=== PATIENT | male | born 1955 | race Caucasian/White ===

== ENCOUNTER 2016-06-29 20:37 | Inpatient (IN) | payer OTHER ==
[~2016-06-29] VITALS: Ht 188 cm; Wt 108.9 kg
[~2016-06-29 20:37] MED LIST: ALDACTONE25 MG PO; AMOXICILLIN500 M2 PO; ASPIRIN EC81 M1 PO; CARDIZEM CD120 M2 PO; COLCHICINE0.6 M2 PO; CORDARONE200 MG PO; DIGOXIN125 MCG PO; DILTIAZEM 24HR300 MG PO; DILTIAZEM ER360 M1 PO; FLOMAX0.4 M1 PO; IBUPROFEN400 M1 PO; LASIX20 M1 PO; LASIX40 M1 PO; MAGNESIUM OXID400 M1 PO; METOPROLOL SUC100 M2 PO; METOPROLOL SUCC50 M2 PO; OMEPRAZOLE20 M2 PO; PERCOCET 5-3251 EACH PO; PRADAXA150 M1 PO; SPIRONOLACTONE25 M1 PO; TOPROL XL100 M1 PO
[2016-06-29 21:05] LABS: ABSOLUTE BASOPHIL COUNT 0 /CUMM (0.0-0.2); ABSOLUTE EOSINOPHIL COUNT 0.4 /CUMM (0.0-0.7); ABSOLUTE LYMPH COUNT 1.7 /CUMM (1.2-3.4); ABSOLUTE MONOCYTE COUNT 1.1 /CUMM (0.10-0.60); BASOPHIL % 0.4 % (0.0-2.0); EOSINOPHIL % 2.8 % (0-5); GRANULOCYTE % 75.5 % (42.2-75.2); HEMATOCRIT 47.9 % (42-52); MEAN CORPUSCULAR HGB CONC 33.1 G/DL (33.0-37.0); MEAN CORPUSCULAR VOLUME 87.7 FL (80.0-94.0); MEAN PLATELET VOLUME 8.3 FL (7.4-10.4); PLATELET COUNT 299 /CUMM (130-400); RBC DISTRIBUTION WIDTH 14.1 % (11.5-14.5); RED BLOOD CELL CT 5.47 /CUMM (4.70-6.10); WHITE BLOOD CELL COUNT 13.2 /CUMM (4.8-10.8)
--- NOTE | 2016-06-29 21:11 | ED GI/GU/ABDOMINAL COMPLAINT ---
History of Present Illness General Chief Complaint: Abdominal Pain/Flank Pain Stated Complaint: ABD PAIN, +NVD Source: patient Exam Limitations: no limitations Allergies Coded Allergies: NO KNOWN ALLERGIES (10/21/15) Reconcile Medications Apixaban (Eliquis) 5 MG TABLET 1 TAB PO BID DIRECTED (Reported) Colchicine 0.6 MG TABLET 1 TAB PO DAILY DIRECTED (Reported) Digoxin 125 MCG TABLET 1 TAB PO DAILY DIRECTED (Reported) Diltiazem HCl (Diltiazem 24HR ER) 360 MG CAP.ER.24H 1 CAP PO DAILY DIRECTED (Reported) Metoprolol Succinate 100 MG TAB.ER.24H 150 MG PO DAILY DIRECTED (Reported) Triage Note: STATES WOKE UP SUNDAY MORNING WITH CRAMPS AND DIARRHEA, GOT WORSE ON SUNDAY, CALLED PCP, BUT UNABLE TO GET SEEN. STARTED TO FEEL BETTER YESTERDAY, AND SAME WITH TODAY AND TRIED TO EAT SOMETHING, AND NOW HAS STOMACH PAINS ALL OVER. PTS ABDOMEN FEELS FIRM/DISTEDED. STATES STILL HAVING DIARRHEA, HAD EPISODE OF VOMITING BEFORE COMING HERE. Triage Nurses Notes Reviewed? yes Onset: Gradual Duration: day(s): (4) Timing: remote history Quality/Severity: cramping Severity Numbers: 8 Location: generalized abdomen Radiation: no radiation Activities at Onset: none Prior Abdominal Problems: none Past Sexual History: Unobtainable at this time No Modifying Factors: none HPI: Patient is a 61-year-old male with history of diverticulitis presenting to the emergency department of diffuse abdominal pain, diarrhea, nausea and vomiting this been waxing and waning since Sunday. He reports that it started after eating cheeseburgers from a take-out facility. He then started with loose watery stool, denies blood in the stool. After the diarrhea tapered down he developed some nausea and vomiting over the past 2 days. He reports that in the meantime his abdomen has become large, distended and very painful. Today he was trying to eat something to see if the abdominal pain had improved. He reports that after he had chicken and potato abdominal pain worsened symptoms definitely which made him come into the emergency department for evaluation. Positive nausea but no vomiting yet today. (INA QUINONES,ALISHA) Vital Signs & Intake/Output Vital Signs & Intake/Output Vital Signs Date Time Temp Pulse Resp B/P Pulse O2 O2 Flow FiO2 Ox Delivery Rate 06/30 1641 126 94/70 06/30 1606 97.4 59 16 100/80 97 Room Air 06/30 1121 122 98/60 03/ 0854 98.6 130 20 120/80 03/10 0832 98.6 83 20 120/80 97 Room Air 03 0832 98.6 83 20 120/80 97 Room Air 06/30 0145 98.5 100 18 124/80 96 Room Air 06/30 0029 122.0 122/78 06/30 0012 120 20 122/78 98 Room Air 06/29 2308 96.8 105 16 97/67 97 Room Air 06/29 2212 Room Air ED Intake and Output 06/30 0000 06/29 1200 Intake Total 1000 Output Total Balance 1000 Intake, IV 1000 Past History Travel History Traveled to [place] past 21 day No Medical History Any Pertinent Medical History? see below for history Neurological: NONE EENT: NONE Cardiovascular: AFIB, aflutter, SVT PERICARDIAL EFFUSION S/P PERICARDIAL WINDOW Respiratory: NONE Gastrointestinal: diverticulitis Hepatic: NONE Renal: NONE Musculoskeletal: NONE, LEFT SHOULDER SX Psychiatric: NONE Endocrine: NONE Blood Disorders: NONE Cancer(s): NONE PUBLIC HEALTH NURSE/Reproductive: ENLARGED PROSTATE History of MRSA: No History of VRE: No History of CDIFF: No Surgical History Surgical History: appendectomy, L SHOULDER SURGERY, L KNEE SURGERY Psychosocial History Who do you live with Family Services at Home None What is your primary language Kosovan Tobacco Use: Never used Family History Family History, If Any: MOTHER FH: lung cancer FATHER FH: emphysema Hx Contributory? No (ALISHA DONALD) Review of Systems Review of Systems Constitutional: Reports: malaise. Comments Review of systems: See HPI, All other systems negative. Constitutional, no chills fever or weight loss HEENT: No visual changes no sore throat no congestion Cardiovascular: No chest pain ,palpitation , orthopnea or ankle swelling Skin, no jaundice no rashes Respiratory: No dyspnea cough sputum or hemoptysis GI: POS N/V/D : No dysuria No hematuria Muscle skeletal: no back pain, no neck pain, Neurologic: No numbness no confusion NO VIDAL Psych: No stress anxiety or depression,. Heme/endocrine: No bruising no bleeding no polyuria or polydipsia Immunology: No splenectomy or history of AIDS (ALISHA DONALD) Physical Exam Physical Exam General Appearance: well developed/nourished, no apparent distress, alert, awake , comfortable Gastrointestinal: tenderness Comments: Well-developed well-nourished person in no acute distress HEENT: Pupils equally round and reactive to light and accommodation. Nose is atraumatic. External auditory canal and Tympanic membranes clear. Pharynx normal. No swelling or edema. Neck: Supple, no lymphadenopathy, normal range of motion without pain or tenderness Back: Nontender, no CVA tenderness. Cardiovascular: irRegular rate and rhythms no murmurs rubs or gallops, normal JVP Respiratory: Chest nontender. No respiratory distress.breath sounds clear to auscultation bilaterally Abdomen: DISTENSION, TYMPANIC SOUNDS TO PERCUSSION THROUGHOUT, no appreciable organomegaly. Hypoactive bowel sounds. No ascites Extremity: No edemA Neuro: Alert oriented x3 Skin: No appreciable rash on exposed skin, skin is warm and dry. Psych: Mood and affect is normal, memory and judgment is normal. Core Measures ACS in differential dx? Yes Severe Sepsis Present: No Septic Shock Present: No (INA QUINONES,ALISHA) Progress Differential Diagnosis: ischemic bowel, SBO, perforated viscus Diagnostic Imaging: Viewed by Me: CT Scan. Discussed w/RAD: CT Scan. Radiology Impression: PATIENT: ÁNGEL BILLY PRESENT AGE: 61 PATIENT ACCOUNT NO: [id number] : 59 LOCATION: [facility] ORDERING PHYSICIAN: ALISHA QUINONES SERVICE DATE: 06/29/16 EXAM TYPE: CAT - CT ABD & PELVIS W IV CONTRAST EXAMINATION: CT ABDOMEN AND PELVIS WITH CONTRAST CLINICAL INFORMATION: Abdominal distention. Diarrhea. COMPARISON: CT scan abdomen pelvis 06/26/2012 TECHNIQUE: Multidetector volumetric imaging was performed of the abdomen and pelvis after the IV administration of 95 mL of Optiray 320 intravenous contrast. Sagittal and coronal reformatted images were obtained on the technologist's workstation. DLP: 766.6 mGy-cm FINDINGS: LUNG BASES: The visualized lung bases are unremarkable. LIVER, GALLBLADDER, AND BILIARY TREE: The liver is normal in size, shape, and attenuation. No focal hepatic lesion or biliary ductal dilatation is present. The gallbladder is unremarkable with no evidence of radiopaque gallstones, gallbladder wall thickening, or obvious pericholecystic inflammatory changes. PANCREAS: Pancreas is atrophic. SPLEEN: Unremarkable. ADRENAL GLANDS: Unremarkable. KIDNEYS AND URETERS: The kidneys are normal in size, shape, and attenuation. No hydronephrosis, hydroureter, or calculi seen. No perinephric stranding. BLADDER: Unremarkable. GASTROINTESTINAL TRACT: There is diverticulosis of sigmoid left colon. No diverticulitis. No acute bowel wall thickening or edema. Moderate volume of stool in colon. The large bowel is decompressed. There is dilatation of the proximal to mid distal small bowel. The terminal ileum and distal small bowel loops are decompressed. Transition is in the right lower quadrant. Bowel pattern is that of a small bowel obstruction. MESENTERY: Small volume free fluid in the lower pelvis. No inflammation. No free air. ABDOMINAL WALL: No significant hernia is appreciated. LYMPH NODES: Normal. VASCULAR: Unremarkable. PELVIC VISCERA: Unremarkable. OSSEOUS STRUCTURES: Multilevel endplate degenerative spurs. Facet joint arthrosis at lower lumbar spine. IMPRESSION: 1. Small bowel obstruction. 2. Diverticulosis of left colon without diverticulitis. 3. Small amount of free fluid in the cul-de-sac. No inflammation of mesentery or free air. Initial ED EKG: AFIB Comments: IV fluids and morphine and initiated on arrival. Patient is afebrile at this time. Patient has diffuse abdominal distention tenderness. Considering SbO. Patient will for CT scan. Patient feeling much better after IV morphine. His department for CT results revealing small bowel obstruction. Spoke With , covering surgeon, the surgical physician pizza hut assistant will be down to evaluate the patient. Patient informed of all imaging results and lab results. Patient will be admitted to surgery for SBO. Holding off on NG tube at this time per surgical physician [employer] assistant. Patient EKG does show rapid A. fib around 120. Patient has not been eating or drinking all day. Patient did take his by mouth medications or any. Blood pressure manually is 128/78. Patient given IV Cardizem. Paged on-call cardiology, awaiting callback. (ALISHA DONALD) Plan of Care: Orders Procedure Date/time Status CBC WITHOUT DIFFERENTIAL 07/01 599 Active BASIC ELECTROLYTES PLUS BUN&CR 07/01 599 Active Clear Liquid Diet 06/30 D Active Nothing by Mouth 06/30 B Complete CULTURE,STOOL 06/30 1013 Active CBC WITHOUT DIFFERENTIAL 06/30 599 Complete BASIC ELECTROLYTES PLUS BUN&CR 06/30 0600 Complete Vital Signs 06/30 154 Active Teach/Educate 06/30 154 Active Pain Treatment and Response 06/30 154 Active Nutritional Intake, Monitor 06/30 154 Active Isolation 06/30 154 Active Intake & Output 06/30 154 Complete Patient Care Conference 06/30 154 Active Activity/Ambulation 06/30 154 Active Add-on Test (ER Only) 06/30 124 Active Pathway - chart 06/30 0024 Active Patient Data 06/30 002 Active Code Status 06/30 002 Active URINALYSIS 06/30 0014 Complete Admit to inpatient 06/30 0008 Active VTE Mechanical Prophylaxis 06/30 UNK Active Vital Signs 06/30 UNK Active Telemetry/Beer Cooler 06/30 UNK Active Intake & Output 06/30 UNK Active EKG 06/29 2338 Active Add-on Test (ER Only) 06/29 2324 Active TROPONIN LEVEL 06/29 2053 Complete DIGOXIN 06/29 2053 Complete Current Medications Sig/Jeanne Start time Last Medication Dose Stop Time Status Admin Colchicine 600 MCG DAILY 07/01 1000 CAN (Colchicine 600MCG Tab) Diltiazem HCl 360 MG DAILY 07/01 1000 AC (Cardizem CD) Ondansetron HCl 4 MG Q6P PRN 06/30 0030 AC (Zofran) Laboratory Tests 06/30/16 0615: Anion Gap 9, Estimated GFR > 60, BUN/Creatinine Ratio 21.1, CBC w Diff NO MAN DIFF REQ, RBC 4.86, MCV 87.4, MCH 29.8, RDW 13.9, MPV 9.0, Gran % 76.1 H, Lymphocytes % 12.3 L, Monocytes % 9.9 H, Eosinophils % 1.3, Basophils % 0.4, Absolute Granulocytes 7.5 H, Absolute Lymphocytes 1.2, Absolute Monocytes 1.0 H, Absolute Eosinophils 0.1, Absolute Basophils 0, PUBS MCHC 34.1 06/30/16124: Troponin I Cancelled 06/30/169: Urine Color STRAW, Urine Clarity CLEAR, Urine pH 6.5, Ur Specific [place] 1.010, Urine Protein TRACE H, Urine Ketones NEG, Urine Nitrite NEG, Urine Bilirubin NEG, Urine Urobilinogen 1.0, Ur Leukocyte Esterase NEG, Ur Microscopic SEDIMENT EXAMINED, Urine RBC 1-3, Urine WBC RARE, Urine Mucus FEW, Urine Hemoglobin NEG, Urine Glucose NEG 06/29/16 2351: Lactic Acid Cancelled Microbiology 06/30 1013 STOOL: Stool Culture - COLB Departure Departure Time of Disposition: 2357 Disposition: STILL A PATIENT Condition: Stable Clinical Impression Primary Impression: Small bowel obstruction Referrals: AYESHA BENAVIDES DO (PCP/Family) Departure Forms: Customer Survey General Discharge Information Admission Note Spoke With: ALEJANDRA LANDA,TIERRA Duff Documentation of Exam: Documentation of any treatments & extenuating circumstances including Concerns Regarding Discharge (functional status, medication knowledge or non-compliance, living conditions, etc.) that warrant an admission rather than observation: (INA QUINONES,ALISHA) PA/RECYCLE WORKER Co-Sign Statement Statement: ED Attending supervision documentation- x I saw and evaluated the patient. I have also reviewed all the pertinent lab results and diagnostic results. I agree with the findings and the plan of care as documented in the PA's/RECYCLE WORKER's documentation. [] I have reviewed the ED Record and agree with the PA's/RECYCLE WORKER's documentation. [] Additions or exceptions (if any) to the PAs/RECYCLE WORKER's note and plan are summarized below: [] (MARGE LANDA,MARGARITO)
[2016-06-29 21:15] LABS: PT 17.2 SEC (9.4-12.5); PTT 32 SEC (25-37)
--- NOTE | 2016-06-29 22:18 | NUR ---
MEDICATED PER EMAR. PT RESTING COMFORTABLY. BURPING OCCASIONALLY
--- NOTE | 2016-06-29 22:18 | NUR ---
JOSE Story TRIAGE NOTE: STATES WOKE UP SUNDAY MORNING WITH CRAMPS AND DIARRHEA, GOT WORSE ON SUNDAY, CALLED PCP, BUT UNABLE TO GET SEEN. STARTED TO FEEL BETTER YESTERDAY, AND SAME WITH TODAY AND TRIED TO EAT SOMETHING, AND NOW HAS STOMACH PAINS ALL OVER. PTS ABDOMEN FEELS FIRM/DISTEDED. STATES STILL HAVING DIARRHEA, HAD EPISODE OF VOMITING BEFORE COMING HERE.
--- NOTE | 2016-06-29 22:59 | NUR ---
PT TO AND FROM CT, AWAITING RESULTS
--- NOTE | 2016-06-29 23:05 | CT SCAN REPORT ---
EXAMINATION: CT ABDOMEN AND PELVIS WITH CONTRAST CLINICAL INFORMATION: Abdominal distention. Diarrhea. COMPARISON: CT scan abdomen pelvis 06/26/2012 TECHNIQUE: Multidetector volumetric imaging was performed of the abdomen and pelvis after the IV administration of 95 mL of Optiray 320 intravenous contrast. Sagittal and coronal reformatted images were obtained on the technologist's workstation. DLP: 766.6 mGy-cm FINDINGS: LUNG BASES: The visualized lung bases are unremarkable. LIVER, GALLBLADDER, AND BILIARY TREE: The liver is normal in size, shape, and attenuation. No focal hepatic lesion or biliary ductal dilatation is present. The gallbladder is unremarkable with no evidence of radiopaque gallstones, gallbladder wall thickening, or obvious pericholecystic inflammatory changes. PANCREAS: Pancreas is atrophic. SPLEEN: Unremarkable. ADRENAL GLANDS: Unremarkable. KIDNEYS AND URETERS: The kidneys are normal in size, shape, and attenuation. No hydronephrosis, hydroureter, or calculi seen. No perinephric stranding. BLADDER: Unremarkable. GASTROINTESTINAL TRACT: There is diverticulosis of sigmoid left colon. No diverticulitis. No acute bowel wall thickening or edema. Moderate volume of stool in colon. The large bowel is decompressed. There is dilatation of the proximal to mid distal small bowel. The terminal ileum and distal small bowel loops are decompressed. Transition is in the right lower quadrant. Bowel pattern is that of a small bowel obstruction. MESENTERY: Small volume free fluid in the lower pelvis. No inflammation. No free air. ABDOMINAL WALL: No significant hernia is appreciated. LYMPH NODES: Normal. VASCULAR: Unremarkable. PELVIC VISCERA: Unremarkable. OSSEOUS STRUCTURES: Multilevel endplate degenerative spurs. Facet joint arthrosis at lower lumbar spine. IMPRESSION: 1. Small bowel obstruction. 2. Diverticulosis of left colon without diverticulitis. 3. Small amount of free fluid in the cul-de-sac. No inflammation of mesentery or free air.
[2016-06-29] MEDS ORDERED: DIGOXIN125 MCG PO (23:23)
[2016-06-29] MEDS ORDERED: METOPROLOL SUC100 M2 PO (23:23)
[2016-06-29] MEDS ORDERED: ELIQUIS5 M1 PO (23:24)
[2016-06-29] MEDS ORDERED: COLCHICINE0.6 M2 PO (23:24)
[2016-06-29] MEDS ORDERED: DILTIAZEM 24HR360 MG PO (23:24)
--- NOTE | 2016-06-30 00:03 | Admission Core Measures ---
Admission Lab Results I reviewed the following labs: Laboratory Tests 06/29 06/29 2351 2054 Chemistry Sodium (137 - 145 mmol/L) 136 L Potassium (3.5 - 5.1 mmol/L) 4.4 Chloride (98 - 107 mmol/L) 97 L Carbon Dioxide (22 - 30 mmol/L) 24 Anion Gap (5 - 16) 14 BUN (9 - 20 mg/dL) 22 H Creatinine (0.7 - 1.2 mg/dL) 1.0 Estimated GFR (>60 ml/min) > 60 BUN/Creatinine Ratio (7 - 25 %) 22.0 Glucose (65 - 99 mg/dL) 116 H Lactic Acid (0.7 - 2.1 mmol/L) Cancelled 1.1 Calcium (8.4 - 10.2 mg/dL) 9.9 Total Bilirubin (0.2 - 1.3 mg/dL) 1.2 AST (17 - 59 U/L) 35 ALT (21 - 72 U/L) 40 Alkaline Phosphatase (< 127 U/L) 98 Total Protein (6.3 - 8.2 g/dL) 8.0 Albumin (3.5 - 5.0 g/dL) 4.6 Globulin (1.9 - 4.2 gm/dL) 3.4 Albumin/Globulin Ratio (1.1 - 2.2 %) 1.4 Amylase (30 - 110 U/L) 45 Lipase (23 - 300 U/L) 58 Coagulation PT (9.4 - 12.5 SEC) 17.2 H INR (0.90 - 1.17) 1.65 H APTT (25 - 37 SEC) 32 Hematology CBC w Diff NO MAN DIFF REQ WBC (4.8 - 10.8 /CUMM) 13.2 H RBC (4.70 - 6.10 /CUMM) 5.47 Hgb (14.0 - 18.0 G/DL) 15.8 Hct (42 - 52 %) 47.9 MCV (80.0 - 94.0 FL) 87.7 MCH (27.0 - 31.0 PG) 29.0 RDW (11.5 - 14.5 %) 14.1 Plt Count (130 - 400 /CUMM) 299 MPV (7.4 - 10.4 FL) 8.3 Gran % (42.2 - 75.2 %) 75.5 H Lymphocytes % (20.5 - 51.1 %) 13.0 L Monocytes % (1.7 - 9.3 %) 8.3 Eosinophils % (0 - 5 %) 2.8 Basophils % (0.0 - 2.0 %) 0.4 Absolute Granulocytes (1.4 - 6.5 /CUMM) 10.0 H Absolute Lymphocytes (1.2 - 3.4 /CUMM) 1.7 Absolute Monocytes (0.10 - 0.60 /CUMM) 1.1 H Absolute Eosinophils (0.0 - 0.7 /CUMM) 0.4 Absolute Basophils (0.0 - 0.2 /CUMM) 0 PUBS MCHC (33.0 - 37.0 G/DL) 33.1 Acute Coronary Syndrome Inclusion Criteria ACS Diagnosis No Inpatient Core Measures LDL Reminder: If No, please order W/I first 24hr of stay Congestive Heart Failure Inclusion Criteria CHF Diagnosis No Cerebrovascular accident Inclusion Criteria CVA/TIA Diagnosis No Inpatient Core Measures Bedside Swallow Eval Reminder: If BSE failed, place ST order Antithrombotic Reminder: Order Antithrombotic Medication by end of day 2 Antithrombotic Reminder: Document Reason Antithrombotic Not ordered by end of day 2 AFIB/Flutter Reminder: If Present, add to problem list AFIB/Flutter Reminder: Order Anticoag Medication for pts with AFIB/Flutter Atherosclerosis Reminder: If Present, add to problem list LDL Reminder: If No, please order W/I first 24hr of stay PT Order Reminder: If No, please order Venous thromboembolism Inpatient Core Measures VTE Risk Factors: Age > 40 No [facility] VTE prophylaxis d/t No contraindications No VTE Pharm Prophylaxis d/t No contraindications Inclusion Criteria - Per Current guidelines, there needs to be overlap - treatment for the first 5 days of Warfarin therapy. - Parenteral Anticoagulation (IV or SC) needs to be - given along with Warfarin therapy. VTE Diagnosis No VTE Type NONE VTE Confirmed by (Test) NONE Problem List As ranked by this Provider includes Assessment & Plan 1. Small bowel obstruction HOME MEDS Home Med List Apixaban (Eliquis) 5 MG TABLET 1 TAB PO BID DIRECTED (Reported) Colchicine 0.6 MG TABLET 1 TAB PO DAILY DIRECTED (Reported) Digoxin 125 MCG TABLET 1 TAB PO DAILY DIRECTED (Reported) Diltiazem HCl (Diltiazem 24HR ER) 360 MG CAP.ER.24H 1 CAP PO DAILY DIRECTED (Reported) Metoprolol Succinate 100 MG TAB.ER.24H 150 MG PO DAILY DIRECTED (Reported)
--- NOTE | 2016-06-30 00:04 | NUR ---
SURG PA HERE TO EVAL EKG DONE.
--- NOTE | 2016-06-30 00:17 | NUR ---
URINE SPEC OBTAINED--3 SPEC TO LAB
--- NOTE | 2016-06-30 00:18 | History & Physical Pre-Op ---
General Information and HPI MD Statement: I have seen and personally examined ÁNGEL BILLY and documented this H&P. The patient is a 61 year old M who presented with a patient stated chief complaint of abdominal pain. Source of Information: patient History of Present Illness: This is a 61-year-old male minutes with a few day history of loose bowel movements, nausea/vomiting, and increased abdominal distention. The patient was seen and reports that some time on Sunday after eating a cheeseburger he developed some abdominal distention with associated loose bowel movements. Throughout the next few days the patient continued to be distended with associated loose bowel movements and intermittent nausea/vomiting. The patient tried to eat some solid food today and due to significantly increased distention and pain he came to the emergency department. He had no other complaints the current time and denied any previous episodes, fever/chills, or dysuria. The patient has had a bout of diverticulitis in the past but this felt different. His last bowel movement was earlier today and he continues to pass some flatus but remains mildly nauseous. Allergies/Medications Allergies: Coded Allergies: NO KNOWN ALLERGIES (10/21/15) Home Med list Apixaban (Eliquis) 5 MG TABLET 1 TAB PO BID DIRECTED (Reported) Colchicine 0.6 MG TABLET 1 TAB PO DAILY DIRECTED (Reported) Digoxin 125 MCG TABLET 1 TAB PO DAILY DIRECTED (Reported) Diltiazem HCl (Diltiazem 24HR ER) 360 MG CAP.ER.24H 1 CAP PO DAILY DIRECTED (Reported) Metoprolol Succinate 100 MG TAB.ER.24H 150 MG PO DAILY DIRECTED (Reported) Compliance With Home Meds: GOOD Past History Medical History Neurological: NONE EENT: NONE Cardiovascular: AFIB, aflutter, SVT PERICARDIAL EFFUSION S/P PERICARDIAL WINDOW Respiratory: NONE Gastrointestinal: diverticulitis Hepatic: NONE Renal: NONE Musculoskeletal: NONE, LEFT SHOULDER SX Psychiatric: NONE Endocrine: NONE Blood Disorders: NONE Cancer(s): NONE 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 Ambulation: independent IADLs Independent: shopping, housework, finances, food prep, telephone, transportation , medication admin. Employment History Employment: Employed Profession/Employer: [employer] Review of Systems Review of Systems Cardiovascular: Denies: chest pain, palpitations. Respiratory: Denies: cough, short of breath. GI: Denies: melena, changes in stool. Genitourinary: Denies: dysuria. Exam & Diagnostic Data Last 24 Hrs of Vital Signs/I&O Vital Signs Date Time Temp Pulse Resp B/P Pulse O2 O2 Flow FiO2 Ox Delivery Rate 06/30 2307 96.8 105 16 97/67 97 Room Air 06/29 221 Room Air 06/29 204 97.0 83 16 102/74 100 Room Air Intake & Output 06/30 0800 06/30 0000 06/29 1600 Intake Total 1000 Output Total Balance 1000 Intake, IV 1000 Laboratory Tests 06/291 2053 Chemistry Sodium (137 - 145 mmol/L) 136 L Potassium (3.5 - 5.1 mmol/L) 4.4 Chloride (98 - 107 mmol/L) 97 L Carbon Dioxide (22 - 30 mmol/L) 24 Anion Gap (5 - 16) 14 BUN (9 - 20 mg/dL) 22 H Creatinine (0.7 - 1.2 mg/dL) 1.0 Estimated GFR (>60 ml/min) > 60 BUN/Creatinine Ratio (7 - 25 %) 22.0 Glucose (65 - 99 mg/dL) 116 H Lactic Acid (0.7 - 2.1 mmol/L) Cancelled 1.1 Calcium (8.4 - 10.2 mg/dL) 9.9 Total Bilirubin (0.2 - 1.3 mg/dL) 1.2 AST (17 - 59 U/L) 35 ALT (21 - 72 U/L) 40 Alkaline Phosphatase (< 127 U/L) 98 Total Protein (6.3 - 8.2 g/dL) 8.0 Albumin (3.5 - 5.0 g/dL) 4.6 Globulin (1.9 - 4.2 gm/dL) 3.4 Albumin/Globulin Ratio (1.1 - 2.2 %) 1.4 Amylase (30 - 110 U/L) 45 Lipase (23 - 300 U/L) 58 Coagulation PT (9.4 - 12.5 SEC) 17.2 H INR (0.90 - 1.17) 1.65 H APTT (25 - 37 SEC) 32 Hematology CBC w Diff NO MAN DIFF REQ WBC (4.8 - 10.8 /CUMM) 13.2 H RBC (4.70 - 6.10 /CUMM) 5.47 Hgb (14.0 - 18.0 G/DL) 15.8 Hct (42 - 52 %) 47.9 MCV (80.0 - 94.0 FL) 87.7 MCH (27.0 - 31.0 PG) 29.0 RDW (11.5 - 14.5 %) 14.1 Plt Count (130 - 400 /CUMM) 299 MPV (7.4 - 10.4 FL) 8.3 Gran % (42.2 - 75.2 %) 75.5 H Lymphocytes % (20.5 - 51.1 %) 13.0 L Monocytes % (1.7 - 9.3 %) 8.3 Eosinophils % (0 - 5 %) 2.8 Basophils % (0.0 - 2.0 %) 0.4 Absolute Granulocytes (1.4 - 6.5 /CUMM) 10.0 H Absolute Lymphocytes (1.2 - 3.4 /CUMM) 1.7 Absolute Monocytes (0.10 - 0.60 /CUMM) 1.1 H Absolute Eosinophils (0.0 - 0.7 /CUMM) 0.4 Absolute Basophils (0.0 - 0.2 /CUMM) 0 PUBS MCHC (33.0 - 37.0 G/DL) 33.1 CAT scan of the abdomen pelvis positive for a small bowel obstruction with a questionable transition point in the right lower quadrant Physical Exam: Gen.: Alert and in no obvious distress Skin: Warm and dry without jaundice Chest: Nontender with equal expansion Cardiac: S1 and S2 irregular and tachycardia Pulmonary: Bilateral breath sounds are equal with good exchange Abdomen: Softly distended, tympanitic, mild generalized tenderness without rebound or guarding. Healed upper midline surgical incision. No masses or hernias were appreciated and bowel sounds are positive. Extremities: Bilateral lower extremities are warm without calf tenderness or significant edema. Assessment/Plan Assessment/Plan: Assessment: 61-year-old male with a small bowel obstruction but more problems with a partial small bowel obstruction which is somewhat resolving. The patient however is unable to tolerate a diet and requires admission for continued observation, hydration, and antiemetics. The case was discussed with Catalino Ashley MD. Plan: The patient will be admitted and kept nothing by mouth with IV hydration Repeat laboratory studies and a multiview in the morning Will hold patient's Eliquist but continue his other home medications The patient's EKG shows atrial fibrillation with an increased rate any cardiology consult will be called GI and DVT prophylaxis PRN antiemetics, antipyretics, and pain medication Out of bed and ambulate Serial abdominal exams As Ranked By This Provider Problem List: 1. Small bowel obstruction
--- NOTE | 2016-06-30 00:52 | RADIOLOGY REPORT ---
EXAMINATION: XR PORTABLE CHEST CLINICAL INFORMATION: Nausea/vomiting, rule out cardiomegaly COMPARISON: 11/04/2015 TECHNIQUE: Portable AP view of the chest was obtained. FINDINGS: Lung volumes are symmetric. No focal consolidation is seen. No evidence of pneumothorax, significant pleural effusion, or overt pulmonary edema. The cardiac silhouette remains prominent, similar to 11/04/2015. Recent abdominal CT of 06/29/2016 demonstrates prominent pericardial fat pads bilaterally, accounting for some of the prominence of the cardiac mediastinal contour, with mild underlying cardiomegaly likely present. No acute osseous findings are seen. IMPRESSION: Prominent cardiac silhouette, without significant change from 11/04/2015; recent CT demonstrates that some of this prominence is due to bilateral pericardial fat pads, with mild underlying cardiomegaly likely present. No acute pulmonary findings.
--- NOTE | 2016-06-30 00:53 | NUR ---
PT GOING TO ROOM 172-1
--- NOTE | 2016-06-30 01:21 | NUR ---
REPORT CALLED TO RN
[2016-06-30 01:45] VITALS: BP 124/80
--- NOTE | 2016-06-30 01:45 | NUR ---
RECIEVED REPORT FROM CHRIS HULL IN ED. PT ARRIVED TO UNIT VIA STRETCHER, ON CARIDAC MONITOR, AFIB WITH HR 80-100S. PT IN NO DISTRESS AT THIS TIME. ORIENTED TO ROOM AND CALL BUTTON. WILL CONTINUE TO MONITOR.
[2016-06-30 08:15] LABS: ABSOLUTE BASOPHIL COUNT 0 /CUMM (0.0-0.2); ABSOLUTE EOSINOPHIL COUNT 0.1 /CUMM (0.0-0.7); ABSOLUTE GRANULOCYTE CT 7.5 /CUMM (1.4-6.5); ABSOLUTE LYMPH COUNT 1.2 /CUMM (1.2-3.4); BASOPHIL % 0.4 % (0.0-2.0); EOSINOPHIL % 1.3 % (0-5); GRANULOCYTE % 76.1 % (42.2-75.2); MEAN CORPUSCULAR HGB 29.8 PG (27.0-31.0); MEAN CORPUSCULAR HGB CONC 34.1 G/DL (33.0-37.0); MEAN CORPUSCULAR VOLUME 87.4 FL (80.0-94.0); PLATELET COUNT 234 /CUMM (130-400); RBC DISTRIBUTION WIDTH 13.9 % (11.5-14.5); RED BLOOD CELL CT 4.86 /CUMM (4.70-6.10); WHITE BLOOD CELL COUNT 9.9 /CUMM (4.8-10.8)
[2016-06-30 08:32] VITALS: BP 120/80
[2016-06-30 08:41] LABS: HEMATOCRIT 42.5 % (42-52)
--- NOTE | 2016-06-30 09:00 | NUR ---
PATIENT HEART RATE CONTINUES IN AFIB WITH RVR AT 137. PATIENT DENIES SOB, LIGHTHEADEDNESS. BP 110/60. JONI CASEY UPDATED. PO CARDIZEM AND LOPRESSOR GIVEN. PER PATIENT. 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 PATIENT RECEIVED 100MG THIS A.M. PA AWARE. WILL FOLLOW PLAN OF CARE.
--- NOTE | 2016-06-30 10:07 | PN- General Surgery ---
Subjective Subjective: Patient reporting large, watery bm this am. States that his nausea is much improved but still c/o abdominal pain and notes is still bloated. Denies chest pain, shortness of breath and difficulty breathing presently. Objective Vital Signs and I&Os Vital Signs Date Time Temp Pulse Resp B/P Pulse O2 O2 Flow FiO2 Ox Delivery Rate 06/30 0854 98.6 130 20 120/80 03/ 0832 98.6 83 20 120/80 97 Room Air 06/30 0832 98.6 83 20 120/80 97 Room Air 06/30 0145 98.5 100 18 124/80 96 Room Air 06/30 0029 122.0 122/78 03 0012 120 20 122/78 98 Room Air 06/29 2308 96.8 105 16 97/67 97 Room Air 06/29 2212 Room Air 06/29 2048 97.0 83 16 102/74 100 Room Air Intake & Output 06/30 1600 06/30 0800 / 0000 / 1600 06/29 0800 06/29 0000 Intake Total 500 1000 Output Total Balance 500 1000 Intake, IV 500 1000 Patient 240 lb Weight Physical Exam: General: Alert and oriented x3, no acute distress Cardiac: irregularly irregular Pulm: CTA bilaterally Abdomen: distended, tender and tympannic to palpation Extremities: Moves all extremities, distal sensation intact. Bialteral calves soft and non-tender Assessment/Plan Assessment/Plan This is a 61 year old male with a pmh of afib, had a pericardial window approximately 8 months ago, presented to hospital one day ago with c/o nausea and vomitting, ct scan c/w sbo. Admitted to surgical service, bowel rest now. -Cardiology consult placed with Dr. Trujillo covering for Dr. Marina. -PO metoprolol 100 xl given this am, added 50 mg xl to be given now, pt's home dose is 150 xl -PO cardizem cd 300 given this am, home dose is 360 hcl ER, discussed with pharmacy, consider 15 mg immediate release q6 today, then 360 hcl ER tomorrow, appreciate cardiology input -Consider iv rate controlling meds if po meds fail to control rate -Await bowel function, Dr. Ashley to see this afternoon, consider multiview xray if distention persists -Will send stool sample for culture today Core Measures/Miscellaneous Venous Thromboembolism VTE Risk Factors: Age > 40 VTE Contraindications: No Contraindications VTE Diagnosis: No VTE Type: NONE VTE Confirmed by (Test): NONE Beta Alka Is Beta Alka a Home Med? Yes If Yes, Was This Ordered Today? Yes Antibiotics Is Patient on Antibiotics? No
--- NOTE | 2016-06-30 12:49 | Cons- Cardiology ---
General Information and HPI Consulting Request Date of Consult: 06/30/16 Requested By: ALEJANDRA LANDA,TIERRA Duff Reason for Consult: atrial fibrilation Source of Information: patient, old records History of Present Illness: This is a pleasant 61 y/o male with a hx of HTN, paroxysmal afib on AC (follwed by Dr. 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 Symptoms were not associated with any palpitations, chest pain, or dyspnea. He also denied orthopnea, paroxysmal nocturnal dyspnea, increasing edema, syncope, headache, or slurring of speech. No obvious bleeding. Was admitted to the surgical service due to concern for possible bowel obstruction. On my interview with the patient this morning his symptoms were already improving. Allergies/Medications Allergies: Coded Allergies: NO KNOWN ALLERGIES (10/21/15) Home Med List: Apixaban (Eliquis) 5 MG TABLET 1 TAB PO BID DIRECTED (Reported) Colchicine 0.6 MG TABLET 1 TAB PO DAILY DIRECTED (Reported) Digoxin 125 MCG TABLET 1 TAB PO DAILY DIRECTED (Reported) Diltiazem HCl (Diltiazem 24HR ER) 360 MG CAP.ER.24H 1 CAP PO DAILY DIRECTED (Reported) Metoprolol Succinate 100 MG TAB.ER.24H 150 MG PO DAILY DIRECTED (Reported) Current Medications: Current Medications Sig/Jeanne Start time Last Medication Dose Route Stop Time Status Admin Colchicine 600 MCG DAILY 06/30 1000 AC 06/30 PO 0853 Dextrose/Sodium 1,000 ML .Q10H 06/30 0030 AC 06/30 Chloride IV 1118 Digoxin 0.125 MG 1700 06/30 1700 AC PO Diltiazem HCl 300 MG DAILY 06/30 1000 AC 06/30 PO 0853 Diltiazem HCl 0 .STK-MED ONE 06/30 0027 DC .ROUTE Diltiazem HCl 10 MG ONCE ONE 06/30 0015 DC 06/30 IV 06/30 0016 0029 Heparin Sodium 5,000 UNIT Q8 06/30 0600 AC 06/30 (Porcine) SC 0622 Metoprolol Succinate 100 MG DAILY 06/30 1000 AC 06/30 PO 0854 Metoprolol Succinate 50 MG DAILY 06/30 1000 AC 06/30 PO 1121 Morphine Sulfate 2 MG Q3P PRN 06/30 0030 AC 06/30 IV 0223 Morphine Sulfate 0 .STK-MED ONE 06/29 2154 DC .ROUTE Morphine Sulfate 2 MG ONCE ONE 06/29 2144 DC 06/29 IV 06/29 2145 220 Ondansetron HCl 4 MG Q6P PRN 06/30 0030 AC IV Ondansetron HCl 0 .STK-MED ONE 06/30 2155 DC .ROUTE Ondansetron HCl 4 MG ONCE ONE 06/29 2144 DC 06/29 IV 06/29 2145 2200 Pantoprazole Sodium 40 MG DAILY 06/30 1000 AC 06/30 IV 0855 Sodium Chloride 1,000 ML BOLUS ONE 06/29 2144 DC 06/29 IV 06/29 2344 2200 Review of Systems Review of Systems: Review of systems as per HPI. The remainder of a 10 point review of systems was reviewed and was otherwise negative. 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 Ambulation: independent IADLs Independent: shopping, housework, finances, food prep, telephone, transportation , medication admin. Employment History Employment: Employed Profession/Employer town [employer] Exam & Diagnostic Data Vital Signs and I&O Vital Signs Date Time Temp Pulse Resp B/P Pulse O2 O2 Flow FiO2 Ox Delivery Rate 06/30 1121 122 98/60 06/30 0854 98.6 130 20 120/80 06/30 0832 98.6 83 20 120/80 97 Room Air 06/30 0832 98.6 83 20 120/80 97 Room Air 06/30 0145 98.5 100 18 124/80 96 Room Air 06/30 0029 122.0 122/78 06/30 0012 120 20 122/78 98 Room Air 06/29 2308 96.8 105 16 97/67 97 Room Air 06/29 2212 Room Air 06/29 2048 97.0 83 16 102/74 100 Room Air Intake & Output 06/30 1600 06/30 0800 06/30 0000 06/29 1600 06/29 0800 06/29 0000 Intake Total 500 1000 Output Total Balance 500 1000 Intake, IV 500 1000 Patient 240 lb Weight Physical Exam: General: no apparent distress. Alert. Eyes: No obvious scleral icterus. HEENT: No jugular venous distention or abnormal jugular venous pulsations. Cardiovascular: Normal intensity S1/S2. Irregular tachycardia Respiratory: Lungs clear to auscultation bilaterally. Abdomen: Mildly distended without rebound or guarding Musculoskeletal: No clubbing or cyanosis noted, no edema Skin: Warm Neurologic: No gross focal deficits noted. Labs/Alphonso Results: Laboratory Tests 06/30 06/30 0615 0125 Chemistry Sodium (137 - 145 mmol/L) 139 Potassium (3.5 - 5.1 mmol/L) 4.4 Chloride (98 - 107 mmol/L) 102 Carbon Dioxide (22 - 30 mmol/L) 28 Anion Gap (5 - 16) 9 BUN (9 - 20 mg/dL) 19 Creatinine (0.7 - 1.2 mg/dL) 0.9 Estimated GFR (>60 ml/min) > 60 BUN/Creatinine Ratio (7 - 25 %) 21.1 Troponin I Cancelled Hematology CBC w Diff NO MAN DIFF REQ WBC (4.8 - 10.8 /CUMM) 9.9 RBC (4.70 - 6.10 /CUMM) 4.86 Hgb (14.0 - 18.0 G/DL) 14.5 Hct (42 - 52 %) 42.5 MCV (80.0 - 94.0 FL) 87.4 MCH (27.0 - 31.0 PG) 29.8 RDW (11.5 - 14.5 %) 13.9 Plt Count (130 - 400 /CUMM) 234 MPV (7.4 - 10.4 FL) 9.0 Gran % (42.2 - 75.2 %) 76.1 H Lymphocytes % (20.5 - 51.1 %) 12.3 L Monocytes % (1.7 - 9.3 %) 9.9 H Eosinophils % (0 - 5 %) 1.3 Basophils % (0.0 - 2.0 %) 0.4 Absolute Granulocytes (1.4 - 6.5 /CUMM) 7.5 H Absolute Lymphocytes (1.2 - 3.4 /CUMM) 1.2 Absolute Monocytes (0.10 - 0.60 /CUMM) 1.0 H Absolute Eosinophils (0.0 - 0.7 /CUMM) 0.1 Absolute Basophils (0.0 - 0.2 /CUMM) 0 PUBS MCHC (33.0 - 37.0 G/DL) 34.1 06/30 06/29 0010 2351 Chemistry Lactic Acid Cancelled Urines Urine Color (YEL,AMB,STR) STRAW Urine Clarity (CLEAR) CLEAR Urine pH (5.0 - 8.0) 6.5 Ur Specific [place] (1.001 - 1.035) 1.010 Urine Protein (NEG,<30 MG/DL) TRACE H Urine Ketones (NEG) NEG Urine Nitrite (NEG) NEG Urine Bilirubin (NEG) NEG Urine Urobilinogen (0.1 - 1.0 EU/dl) 1.0 Ur Leukocyte Esterase (NEG) NEG Ur Microscopic SEDIMENT EXAMINED Urine RBC (0 - 5 /HPF) 1-3 Urine WBC (0 - 2 /HPF) RARE Urine Mucus (FEW,NONE) FEW Urine Hemoglobin (NEG) NEG Urine Glucose (N MG/DL) NEG 06/29 2053 Chemistry Sodium (137 - 145 mmol/L) 136 L Potassium (3.5 - 5.1 mmol/L) 4.4 Chloride (98 - 107 mmol/L) 97 L Carbon Dioxide (22 - 30 mmol/L) 24 Anion Gap (5 - 16) 14 BUN (9 - 20 mg/dL) 22 H Creatinine (0.7 - 1.2 mg/dL) 1.0 Estimated GFR (>60 ml/min) > 60 BUN/Creatinine Ratio (7 - 25 %) 22.0 Glucose (65 - 99 mg/dL) 116 H Lactic Acid (0.7 - 2.1 mmol/L) 1.1 Calcium (8.4 - 10.2 mg/dL) 9.9 Total Bilirubin (0.2 - 1.3 mg/dL) 1.2 AST (17 - 59 U/L) 35 ALT (21 - 72 U/L) 40 Alkaline Phosphatase (< 127 U/L) 98 Troponin I (<0.11 ng/ml) < 0.01 Total Protein (6.3 - 8.2 g/dL) 8.0 Albumin (3.5 - 5.0 g/dL) 4.6 Globulin (1.9 - 4.2 gm/dL) 3.4 Albumin/Globulin Ratio (1.1 - 2.2 %) 1.4 Amylase (30 - 110 U/L) 45 Lipase (23 - 300 U/L) 58 Coagulation PT (9.4 - 12.5 SEC) 17.2 H INR (0.90 - 1.17) 1.65 H APTT (25 - 37 SEC) 32 Hematology CBC w Diff NO MAN DIFF REQ WBC (4.8 - 10.8 /CUMM) 13.2 H RBC (4.70 - 6.10 /CUMM) 5.47 Hgb (14.0 - 18.0 G/DL) 15.8 Hct (42 - 52 %) 47.9 MCV (80.0 - 94.0 FL) 87.7 MCH (27.0 - 31.0 PG) 29.0 RDW (11.5 - 14.5 %) 14.1 Plt Count (130 - 400 /CUMM) 299 MPV (7.4 - 10.4 FL) 8.3 Gran % (42.2 - 75.2 %) 75.5 H Lymphocytes % (20.5 - 51.1 %) 13.0 L Monocytes % (1.7 - 9.3 %) 8.3 Eosinophils % (0 - 5 %) 2.8 Basophils % (0.0 - 2.0 %) 0.4 Absolute Granulocytes (1.4 - 6.5 /CUMM) 10.0 H Absolute Lymphocytes (1.2 - 3.4 /CUMM) 1.7 Absolute Monocytes (0.10 - 0.60 /CUMM) 1.1 H Absolute Eosinophils (0.0 - 0.7 /CUMM) 0.4 Absolute Basophils (0.0 - 0.2 /CUMM) 0 PUBS MCHC (33.0 - 37.0 G/DL) 33.1 Toxicology Digoxin (0.8 - 2.0 ng/mL) 0.5 L Diagnostic Data EKG Results Twelve-lead ECG tracing was personally reviewed and shows atrial fibrillation at 120 beats per minute with right bundle-branch block and nonspecific ST-T abnormalities CXR Results Prominent cardiac silhouette, without significant change from 11/04/2015; recent CT demonstrates that some of this prominence is due to bilateral pericardial fat pads, with mild underlying cardiomegaly likely present. No acute pulmonary findings. Other Results Abdominal CT 1. Small bowel obstruction. 2. Diverticulosis of left colon without diverticulitis. 3. Small amount of free fluid in the cul-de-sac. No inflammation of mesentery or free air. Outpatient echocardiogram from May 2016 showed ejection fraction of 45% with atrial enlargement and mild aortic dilatation (4.1cm) Assessment/Plan Assessment/Plan 1. Small bowel obstruction 2. Known paroxysmal atrial fibrillation on outpatient Eliquis (followed by Dr. Blanco) 3. Mild left ventricular dysfunction by recent echo presumed due to atrial fibrillation with tachycardia 4. Known history of right bundle-branch block 5. History of hemorrhagic pericarditis requiring pericardial window (2015) 6. History of failed to IRIS/cardioversion (2015) 7. Hx HTN 8. Mild aortic dilatation on recent echocardiogram (4.1 cm) Patient presents with evidence of small bowel obstruction although it does seem that he is already improving. We are hopeful that he will not require surgery. I would recommend continuing him on his outpatient cardiac rate control meds and we will continue to monitor his average heart rate on telemetry but some mild hemodynamically stable tachycardia would be expected in the setting of the small bowel obstruction. Anticoagulation is on hold as he may require surgery. If it is determined that he will not require surgery would resume his outpatient Eliquis. If he needs to be off Eliquis for more than 72 hours would consider anticoagulation bridge with IV heparin. Inpatient echocardiogram not required at this time although he will undergo repeat EF assessment in the future after additional outpatient atrial fibrillation optimization. Please do not hesitate to contact me with any questions or concerns. Imtiaz Trujillo MD [facility] Consult Acknowledgment - Thank you for your consult request.
[2016-06-30 16:06] VITALS: BP 100/80
[2016-07-01 00:09] VITALS: BP 100/68
[2016-07-01 07:48] VITALS: BP 120/90
[2016-07-01 08:47] LABS: ABSOLUTE BASOPHIL COUNT 0 /CUMM (0.0-0.2); ABSOLUTE EOSINOPHIL COUNT 0.3 /CUMM (0.0-0.7); ABSOLUTE GRANULOCYTE CT 4.9 /CUMM (1.4-6.5); ABSOLUTE LYMPH COUNT 1.6 /CUMM (1.2-3.4); ABSOLUTE MONOCYTE COUNT 0.9 /CUMM (0.10-0.60); BASOPHIL % 0.6 % (0.0-2.0); EOSINOPHIL % 3.8 % (0-5); GRANULOCYTE % 62.9 % (42.2-75.2); HEMATOCRIT 44.8 % (42-52); MEAN CORPUSCULAR HGB 29.1 PG (27.0-31.0); MEAN CORPUSCULAR VOLUME 88.2 FL (80.0-94.0); MEAN PLATELET VOLUME 9.1 FL (7.4-10.4); PLATELET COUNT 231 /CUMM (130-400); RBC DISTRIBUTION WIDTH 14.4 % (11.5-14.5); RED BLOOD CELL CT 5.08 /CUMM (4.70-6.10); WHITE BLOOD CELL COUNT 7.8 /CUMM (4.8-10.8)
[2016-07-01 10:13] VITALS: BP 128/70
--- NOTE | 2016-07-01 11:20 | PN- General Surgery ---
Subjective Subjective: HD #2 with SBO. Passing flatus, had BM yesterday morning. Feels well. Denies bloating, abdominal pain, N/V, F/C. Ambulating well. Voiding spontaneously. Objective Vital Signs and I&Os Vital Signs Date Time Temp Pulse Resp B/P Pulse O2 O2 Flow FiO2 Ox Delivery Rate 07/01 1013 126 128/70 07/01 1013 126 128/70 07/01 0748 97.6 57 16 120/90 97 Room Air 07/01 0009 97.3 88 12 100/68 91 Room Air 06/30 1641 126 94/70 06/30 1606 97.4 59 16 100/80 97 Room Air 06/30 1121 122 98/60 Intake & Output 07/01 1600 07/01 0800 07/01 0000 06/30 1600 06/30 0800 06/30 0000 Intake Total 550 1400 913 359 2447 Output Total Balance 550 1400 184 557 9495 Intake, IV 400 750 545 650 6535 Intake, Oral 150 650 120 Number 0 0 1 Bowel Movements Patient 240 lb Weight Physical Exam: Gen: AAOx3 in NAD Cor: S1+S2+ Lungs: CTA ar Abd: soft, NT, ND, +BS x4 Ext: no edema or calf tenderness to ar lower extremities. Current Medications: Current Medications Sig/Jeanne Start time Last Medication Dose Route Stop Time Status Admin Acetaminophen 650 MG Q6-PRN PRN 07/01 0645 AC PO Apixaban 5 MG BID 06/30 2200 AC 07/01 PO 1013 Colchicine 600 MCG DAILY 07/01 1000 CAN PO Colchicine 600 MCG DAILY 06/30 1000 AC 07/01 PO 1013 Dextrose/Sodium 1,000 ML .Q20H 06/30 0030 DC 06/30 Chloride IV 2120 Digoxin 0.125 MG 1700 06/30 1700 AC 06/30 PO 1641 Diltiazem HCl 360 MG DAILY 07/01 1000 AC 07/01 PO 1012 Diltiazem HCl 300 MG DAILY 06/30 1000 DC 06/30 PO 0853 Heparin Sodium 5,000 UNIT Q8 06/30 0600 DC 06/30 (Porcine) SC 1338 Metoprolol Succinate 100 MG DAILY 06/30 1000 AC 07/01 PO 1013 Metoprolol Succinate 50 MG DAILY 06/30 1000 AC 07/01 PO 1013 Morphine Sulfate 2 MG Q3P PRN 06/30 0030 DC 06/30 IV 0223 Ondansetron HCl 4 MG Q6P PRN 06/30 0030 AC IV Pantoprazole Sodium 40 MG DAILY 06/30 1000 AC 07/01 IV 1013 Results Last 48 Hours of Labs: Laboratory Tests 07/01 06/30 0725 0615 Chemistry Sodium (137 - 145 mmol/L) 140 139 Potassium (3.5 - 5.1 mmol/L) 4.5 4.4 Chloride (98 - 107 mmol/L) 103 102 Carbon Dioxide (22 - 30 mmol/L) 27 28 Anion Gap (5 - 16) 10 9 BUN (9 - 20 mg/dL) 14 19 Creatinine (0.7 - 1.2 mg/dL) 0.9 0.9 Estimated GFR (>60 ml/min) > 60 > 60 BUN/Creatinine Ratio (7 - 25 %) 15.6 21.1 Hematology CBC w Diff NO MAN DIFF REQ NO MAN DIFF REQ WBC (4.8 - 10.8 /CUMM) 7.8 9.9 RBC (4.70 - 6.10 /CUMM) 5.08 4.86 Hgb (14.0 - 18.0 G/DL) 14.8 14.5 Hct (42 - 52 %) 44.8 42.5 MCV (80.0 - 94.0 FL) 88.2 87.4 MCH (27.0 - 31.0 PG) 29.1 29.8 RDW (11.5 - 14.5 %) 14.4 13.9 Plt Count (130 - 400 /CUMM) 231 234 MPV (7.4 - 10.4 FL) 9.1 9.0 Gran % (42.2 - 75.2 %) 62.9 76.1 H Lymphocytes % (20.5 - 51.1 %) 21.3 12.3 L Monocytes % (1.7 - 9.3 %) 11.4 H 9.9 H Eosinophils % (0 - 5 %) 3.8 1.3 Basophils % (0.0 - 2.0 %) 0.6 0.4 Absolute Granulocytes (1.4 - 6.5 /CUMM) 4.9 7.5 H Absolute Lymphocytes (1.2 - 3.4 /CUMM) 1.6 1.2 Absolute Monocytes (0.10 - 0.60 /CUMM) 0.9 H 1.0 H Absolute Eosinophils (0.0 - 0.7 /CUMM) 0.3 0.1 Absolute Basophils (0.0 - 0.2 /CUMM) 0 0 PUBS MCHC (33.0 - 37.0 G/DL) 33.0 34.1 06/30 06/30 0125 0010 Chemistry Troponin I Cancelled Urines Urine Color (YEL,AMB,STR) STRAW Urine Clarity (CLEAR) CLEAR Urine pH (5.0 - 8.0) 6.5 Ur Specific [place] (1.001 - 1.035) 1.010 Urine Protein (NEG,<30 MG/DL) TRACE H Urine Ketones (NEG) NEG Urine Nitrite (NEG) NEG Urine Bilirubin (NEG) NEG Urine Urobilinogen (0.1 - 1.0 EU/dl) 1.0 Ur Leukocyte Esterase (NEG) NEG Ur Microscopic SEDIMENT EXAMINED Urine RBC (0 - 5 /HPF) 1-3 Urine WBC (0 - 2 /HPF) RARE Urine Mucus (FEW,NONE) FEW Urine Hemoglobin (NEG) NEG Urine Glucose (N MG/DL) NEG 06/29 06/29 2351 2054 Chemistry Sodium (137 - 145 mmol/L) 136 L Potassium (3.5 - 5.1 mmol/L) 4.4 Chloride (98 - 107 mmol/L) 97 L Carbon Dioxide (22 - 30 mmol/L) 24 Anion Gap (5 - 16) 14 BUN (9 - 20 mg/dL) 22 H Creatinine (0.7 - 1.2 mg/dL) 1.0 Estimated GFR (>60 ml/min) > 60 BUN/Creatinine Ratio (7 - 25 %) 22.0 Glucose (65 - 99 mg/dL) 116 H Lactic Acid (0.7 - 2.1 mmol/L) Cancelled 1.1 Calcium (8.4 - 10.2 mg/dL) 9.9 Total Bilirubin (0.2 - 1.3 mg/dL) 1.2 AST (17 - 59 U/L) 35 ALT (21 - 72 U/L) 40 Alkaline Phosphatase (< 127 U/L) 98 Troponin I (<0.11 ng/ml) < 0.01 Total Protein (6.3 - 8.2 g/dL) 8.0 Albumin (3.5 - 5.0 g/dL) 4.6 Globulin (1.9 - 4.2 gm/dL) 3.4 Albumin/Globulin Ratio (1.1 - 2.2 %) 1.4 Amylase (30 - 110 U/L) 45 Lipase (23 - 300 U/L) 58 Coagulation PT (9.4 - 12.5 SEC) 17.2 H INR (0.90 - 1.17) 1.65 H APTT (25 - 37 SEC) 32 Hematology CBC w Diff NO MAN DIFF REQ WBC (4.8 - 10.8 /CUMM) 13.2 H RBC (4.70 - 6.10 /CUMM) 5.47 Hgb (14.0 - 18.0 G/DL) 15.8 Hct (42 - 52 %) 47.9 MCV (80.0 - 94.0 FL) 87.7 MCH (27.0 - 31.0 PG) 29.0 RDW (11.5 - 14.5 %) 14.1 Plt Count (130 - 400 /CUMM) 299 MPV (7.4 - 10.4 FL) 8.3 Gran % (42.2 - 75.2 %) 75.5 H Lymphocytes % (20.5 - 51.1 %) 13.0 L Monocytes % (1.7 - 9.3 %) 8.3 Eosinophils % (0 - 5 %) 2.8 Basophils % (0.0 - 2.0 %) 0.4 Absolute Granulocytes (1.4 - 6.5 /CUMM) 10.0 H Absolute Lymphocytes (1.2 - 3.4 /CUMM) 1.7 Absolute Monocytes (0.10 - 0.60 /CUMM) 1.1 H Absolute Eosinophils (0.0 - 0.7 /CUMM) 0.4 Absolute Basophils (0.0 - 0.2 /CUMM) 0 PUBS MCHC (33.0 - 37.0 G/DL) 33.1 Toxicology Digoxin (0.8 - 2.0 ng/mL) 0.5 L Assessment/Plan Assessment/Plan A: HD #2 with SBO, now resolving. Tolerating clear liquids without nausea or vomiting. AVSS. Plan: Full liquid diet. OOB and ambulate. Likely advance tomorrow or later tonight. To discuss with nursing consultant attending. Core Measures/Miscellaneous Venous Thromboembolism VTE Risk Factors: Age > 40 VTE Contraindications: No Contraindications VTE Diagnosis: No VTE Type: NONE VTE Confirmed by (Test): NONE Beta Alka Is Beta Alka a Home Med? Yes If Yes, Was This Ordered Today? Yes Antibiotics Is Patient on Antibiotics? No
--- NOTE | 2016-07-01 12:28 | Patient Discharge Instructions ---
Discharge Instructions General Discharge Information You were seen/treated for: SMALL BOWEL OBSTRUCTION You had these procedures: NONE Watch for these problems: INCREASING ABDOMINAL PAIN AND DISTENSION, NO BM IN 3-5 DAYS. Diet Continue normal diet: Yes Activity Full Activity/No Limits: Yes Acute Coronary Syndrome Inclusion Criteria At DC or during hospital stay patient has or had the following: ACS DIAGNOSIS No Discharge Core Measures Meds if any: Prescribed or Continued at Discharge Meds if any: NOT Prescribed or Continued at Discharge Congestive Heart Failure Inclusion Criteria At DC or during hospital stay patient has or had the following: CHF DIAGNOSIS No Discharge Core Measures Meds if any: Prescribed or Continued at Discharge Meds if any: NOT Prescribed or Continued at Discharge Cerebrovascular accident Inclusion Criteria At DC or during hospital stay patient has or had the following: CVA/TIA Diagnosis No Discharge Core Measures Meds if any: Prescribed or Continued at Discharge Meds if any: NOT Prescribed or Continued at Discharge Venous thromboembolism Inclusion Criteria VTE Diagnosis No VTE Type NONE VTE Confirmed by (Test) NONE Discharge Core Measures - Per Current guidelines, there needs to be overlap - treatment for the first 5 days of Warfarin therapy. - If discharged on Warfarin prior to 5 days of - overlap therapy, the patient will need to be - assessed for post discharge needs including - *Post discharge parental anticoagulation - *Warfarin and/or parental anticoagulation education - *Follow up date to check INR post discharge At least 5 days overlap therapy as Inpatient No Meds if any: Prescribed or Continued at Discharge Note: Overlap Therapy is Warfarin and Anticoagulant Meds if any: NOT Prescribed or Continued at Discharge
--- NOTE | 2016-07-01 12:29 | Surgical Discharge Summary ---
Visit Information Visit Dates Admission Date: 06/30/16 Discharge Date: 07-01-16 History of Present Illness Chief Complaint: ABDOMINAL PAIN Medical History Blood Transfusion Hx: No Neurological: NONE EENT: NONE Cardiovascular: AFIB, aflutter, SVT PERICARDIAL EFFUSION S/P PERICARDIAL WINDOW Respiratory: NONE Gastrointestinal: diverticulitis Hepatic: NONE Renal: NONE Musculoskeletal: NONE, LEFT SHOULDER SX Psychiatric: NONE Endocrine: NONE Blood Disorders: NONE Cancer(s): NONE EXAMINATION GRADER/Reproductive: ENLARGED PROSTATE History of MRSA: No History of VRE: No History of CDIFF: No Isolation History: Standard Surgical History Pertinent Surgical History: appendectomy, knee replacement, L SHOULDER SURGERY, L KNEE SURGERY pericardial window Family History Relations & Conditions If Any: MOTHER FH: lung cancer FATHER FH: emphysema Psychosocial History Who Do You Live With? Family Services at Home: None What is Your Primary Language? Marshallese ETOH Use: denies use Review of Systems: see HPI Hospital Course Course Attending Physician: ALEJANDRA LANDA,CATALINO Duff Primary Care Physician: AYESHA BENAVIDES DO Hospital Course: Patient is a 61 year old male with a past surgical history significant for an appendectomy who was admitted on 06/30/16 with a small bowel obstruction, presenting with loose BMs, nausea, vomiting, and abdominal distension. He was managed conservatively and ultimately began having formed BMs and passing flatus. He felt much improved and was discharged home with outpatient follow up with Dr. Porsha Ashley if necessary. Allergies: Coded Allergies: NO KNOWN ALLERGIES (10/21/15) Disposition Summary Disposition Principal Diagnosis: bowel obstruction Additional Diagnosis: none Discharge Disposition: home or self care Discharge Instructions General Discharge Information Code Status: Full Code Patient's Diet: regular Patient's Activity: as tolerated Follow-Up Instructions/Appts: Dr. Catalino Ashley if necessary Medications at Discharge Discharge Medications: Continue taking these medications: Digoxin (Digoxin) 125 MCG TABLET 1 Tablet ORAL DAILY Qty = 30 Metoprolol Succinate (Metoprolol Succinate) 100 MG TAB.ER.24H 150 Milligram ORAL DAILY Qty = 30 Apixaban (Eliquis) 5 MG TABLET 1 Tablet ORAL TWICE DAILY Qty = 60 Colchicine (Colchicine) 0.6 MG TABLET 1 Tablet ORAL DAILY Qty = 30 Diltiazem HCl (Diltiazem 24HR ER) 360 MG CAP.ER.24H 1 Capsule ORAL DAILY Qty = 30
== END 2016-07-01 15:20 | DRG 390 ==
LOC: ENRESERVTM → ENRESERVDT → ERH 20:37 → ENPENDDIS 06-30 00:08 → 1NO 06-30 00:08 → ERHI 06-30 00:08 → 1NO 06-30 01:27
PROVIDERS: Emergency Medicine; Nurse Practitioner; Physician Assistant Surgical; ADMIT Surgery
DX: K56.69 Other intestinal obstruction (principal); I48.0 Paroxysmal atrial fibrillation; Z79.01 Long term (current) use of anticoagulants; I45.10 Unspecified right bundle-branch block; K57.30 Diverticulosis of large intestine without perforation or abscess without bleeding; Z87.891 Personal history of nicotine dependence
CPT/HCPCS: 1NP; 36415; 74177; 81001; 82436; 87045; 93005; 93010; 96361; 96374; 96375; J1644; J2405; J7042; J7508